=== PATIENT | male | born 1940 | race Caucasian/White ===

== ENCOUNTER 2017-02-15 13:11 | Inpatient (IN) | payer MEDICARE ==
[2017-02-15] MEDS ORDERED: Rocuronium Bromide 50 MG/5 ML VIAL ONE (13:21)
[2017-02-15] MEDS ORDERED: Fentanyl 100 MCG/2 ML VIAL ONE (13:27)
[2017-02-15] MEDS ORDERED: Midazolam HCl 2 mg/2 ml Vial ONE (13:27)
[2017-02-15 13:42] LABS: #Eosinphils 0.1 thou/uL (0.0-0.7); #Lymphocytes 0.9 thou/uL (1.20-3.40); #Monocytes 0.6 thou/uL (0.11-0.59); #Neutrophils 3.6 thou/uL (1.40-6.50); %Basophils 0.3 % (0.0-1.0); %Eosinophils 1.8 % (0.0-10.0); %Lymphocytes 17.3 % (21.0-51.0); %Monocytes 11.7 % (0.0-10.0); Hematocrit 44.8 % (42.0-52.0); Mean Platelet Volume 6.2 fL (7.4-10.4); Red Blood Cell (RBC) Count 4.78 mill/uL (4.70-6.10); White Blood Cell (WBC) Count 5.3 thou/uL (4.8-10.8)
[2017-02-15] MEDS ORDERED: Fentanyl 20 MCG/ML 250 ML ONE (13:47)
[2017-02-15 13:56] LABS: Acetaminophen Less than 6.0 mcg/mL (10.0-30.0); Salicylate Less than 8.0 mg/dL (15.0-30.0)
[2017-02-15 13:57] LABS: ALT (SGPT) Less than 7 U/L (8-55); AST (SGOT) 21 U/L (5-34); Alkaline Phosphatase 62 U/L (40-150); Anion Gap 15 mmol/L (10-20); BUN (Urea Nitrogen) 15 mg/dL (8.4-25.7); Bilirubin, Total 0.7 mg/dL (0.2-1.2); CK (CPK) 172 U/L (30-200); Calc. Creatinine Clearance 0 mL/min (70-130); Calcium 9.5 mg/dL (7.8-10.44); Carbon Dioxide 25 mmol/L (23-31); Chloride 104 mmol/L (98-107); Estimated GFR-MDRD 77; Protein, Total 7.1 g/dL (5.8-8.1)
[2017-02-15 14:01] LABS: Bilirubin Negative (Negative); Blood, Urine Negative (Negative); Glucose, Urine (Dipstick) Negative (Negative); Ketone, Urine Negative (Negative); Nitrite Negative (Negative); Protein, Urine (Dipstick) Negative (Neg-Trace); Urobilinogen 0.2 mg/dL (0.2-1.0)
[2017-02-15 14:17] LABS: Amphetamine Not Detected (NotDetected); Methadone Not Detected (NotDetected); Methamphetamine Not Detected (NotDetected)
--- NOTE | 2017-02-15 14:19 | CT ---
CT CERVICAL SPINE WITHOUT CONTRAST: Comparison: None. History: Altered mental status. Patient was found more than hour prior to arrival with altered menta l status. Technique: Multiple contiguous axial images were obtained in a CT of the cervical spine without cont rast. Sagittal and coronal reformats were performed. FINDINGS: An endotracheal tube is partially visualized. The C5 and C6 vertebral bodies are fused. The vertebra l bodies demonstrate normal height without acute fracture or subluxation. There are moderate degener ative changes in the lower cervical spine. No prevertebral soft tissue swelling is seen. The posterior facets are well aligned. Normal alignment of the skull base with the cervical spine is seen. There are opacities seen in the right upper lobe which could represent a pulmonary infiltrate. IMPRESSION: 1. No evidence of acute osseous abnormality of the cervical spine. 2. Possible right upper lobe infiltrate. POS: [facility]
--- NOTE | 2017-02-15 14:32 | RAD ---
SINGLE VIEW OF THE CHEST: Comparison: None. History: Altered mental status. FINDINGS: Single view of the chest shows an enlarged cardiomediastinal silhouette. An endotracheal tube is see n with its tip between the clavicles. There is no evidence of consolidation, mass or pleural effusio n. IMPRESSION: 1. No evidence of acute cardiopulmonary disease. 2. Appropriate position of endotracheal tube. POS: [facility]
--- NOTE | 2017-02-15 14:34 | CT ---
CT BRAIN WITHOUT CONTRAST: History: Altered mental status for more than one hour prior to arrival. GSS of 8. Technique: Multiple contiguous axial images were obtained in a CT of the brain without contrast. FINDINGS: There are scattered hypodensities in the subcortical and periventricular white matter, likely second jhonathan to small vessel ischemic disease. No large confluent infarction is seen. There is no evidence of hydrocephalus, intracranial hemorrhage or extraaxial fluid collections. The calvarium and overlying soft tissues are unremarkable. The visualized paranasal sinuses and mast oid air cells are well aerated. IMPRESSION: Small vessel ischemic disease without acute intracranial abnormality. POS: [facility]
[2017-02-15 14:48] LABS: Mechanical Tidal Volume 490 ml; Mode SIMV; Modified Allen's Test POSITIVE; Oxyhemoglobin 97.6 % (94.0-97.0); Pressure Support 10 cmH2O; Sodium 140 mmol/L (135-148); Vent YES
[2017-02-15] MEDS ORDERED: cefTRIAXone\\ROCEPHIN 2 GM VIAL ONE ×2 (16:27→16:41)
[2017-02-15] MEDS ORDERED: Azithromycin 500 MG VIAL ONE (16:27)
[2017-02-15] MEDS ORDERED: CCU Electrolyte Replacement 1 EACH IVPB ONE (17:05)
[2017-02-15] MEDS ORDERED: Diabetic Tussin 200 MG/10 ML UDCUP PER TUBE PRN (17:05)
[2017-02-15] MEDS ORDERED: Mag-Al 1200 mg/1200 mg/30 ML UDCUP PER TUBE PRN (17:05)
[2017-02-15] MEDS ORDERED: Senokot 8.6 MG TAB PER TUBE PRN (17:05)
[2017-02-15] MEDS ORDERED: Labetalol HCl 100 MG/20 ML VIAL SLOW IVP PRN (17:05)
[2017-02-15] MEDS ORDERED: Eucerin (Mineral Oil/Petrolatum,White) 30 gm Jar TOP PRN (17:05)
[2017-02-15] MEDS ORDERED: Ondansetron HCl/PF 4 MG/2 ML Vial IVP PRN (17:05)
[2017-02-15] MEDS ORDERED: Acetaminophen 325 MG TAB PER TUBE PRN (17:05)
[2017-02-15] MEDS ORDERED: Milk Of Magnesia 30 ML UDCUP PER TUBE PRN (17:05)
[2017-02-15] MEDS ORDERED: Artificial Tears 18 DROP/0.9 ML EA EYE PRN (17:05)
[2017-02-15] MEDS ORDERED: Loperamide HCl 2 MG CAP PER TUBE PRN (17:05)
[2017-02-15] MEDS ORDERED: Sedation Protocol FS ONE (17:05)
[2017-02-15] MEDS ORDERED: Ondansetron ODT 4 MG TAB PER TUBE PRN (17:05)
--- NOTE | 2017-02-15 17:05 | HP ---
PRIMARY CARE PHYSICIAN: City call admission. REASON FOR ADMISSION: Acute respiratory failure and acute encephalopathy. HISTORY OF PRESENT ILLNESS: A 76-year-old male who is currently intubated, so we are not able to ge t any history from him. The patient's family member present who provided history. This patient renetta t to other emergency room recently in [place] and the patient was having some respiratory symptoms and that is why the patient was given levofloxacin and he was discharged home. The patient was hav ing difficulty sleeping and that is why the patient was given clonazepam last night. This morning, the patient was completely incoherent and was mumbling. Subsequently, the patient started walking t o the pond up to waist level and somebody saved his life. He did not have any drowning but villanathanael leonid pulled out of the pond, paramedics brought him to the emergency room. The patient was intubated i n the emergency room. The patient also got central line and at this point the patient is being admi tted to ICU. Dr. Loera already saw this patient. REVIEW OF SYSTEMS: All review of systems tried to reviewed with the patient, but unable to review a t this point because the patient is intubated and sedated. PAST MEDICAL HISTORY: History of prostate cancer diagnosed in 2010, Parkinson's disease, history of pneumonia diagnosed in the emergency room yesterday, hypothyroidism, benign enlargement of prostate , Alzheimer's dementia, dyslipidemia, anxiety and depression, and hypertension. PAST SURGICAL HISTORY: Cardiac catheterization with stent placement. PAST PSYCHIATRIC HISTORY: Anxiety, depression, and dementia. SOCIAL HISTORY: The patient lives at home with the family. No history of tobacco, alcohol or illic it drug abuse. FAMILY HISTORY: No strong family history of premature coronary artery disease, stroke or cancer. ALLERGIES: No known drug allergies. CURRENT HOME MEDICATIONS: Synthroid 25 mcg p.o. daily, Detrol 2 mg twice daily, Proscar 5 mg p.o. d aily, oxybutynin 15 mg p.o. daily, donepezil 10 mg p.o. daily, ropinirole 1 mg p.o. daily, Lipitor 4 0 mg p.o. at bedtime, metoprolol 25 mg p.o. daily, levodopa 25/100 one tablet q.i.d., ramipril 10 mg p.o. daily, clonazepam 1 mg p.o. at bedtime, vitamin D3 with calcium 1 tablet daily, multivitamin 1 tablet p.o. daily, and selegiline 5 mg twice daily. EMERGENCY ROOM COURSE: In the emergency room, the patient is given Rocephin, azithromycin, IV fluid , fentanyl, Versed, etomidate, and Zemuron. PHYSICAL EXAMINATION: VITAL SIGNS: Currently, blood pressure 179/91, pulse 58, respiratory rate 17 on ventilator, saturat ion 98% on ventilator, weight 95.3 kilograms, and temperature 96.4 rectally. GENERAL: The patient is currently intubated and sedated, no obvious acute distress. HEENT: Head: Normocephalic, atraumatic. Eyes: Pupils round, reactive to light. Extraocular musc les are intact. ENT: Endotracheal tube in place. No pharyngeal erythema. NECK: Supple, no JVD, no thyromegaly, no carotid bruit. Range of motion is normal. LUNGS: Clear to auscultation without any obvious rhonchi or rales anteriorly. CARDIAC: S1, S2 regular without any significant murmur. ABDOMEN: Soft, bowel sounds present, nondistended. No organomegaly, no mass, no suprapubic tendern ess. BACK: Unremarkable. EXTREMITIES: Upper extremity passive movements of all joints are normal. Lower extremity passive m ovements of all joints are normal. No edema, good peripheral pulsation. SKIN: No skin rash. HEMATOLOGICAL: No lymphadenopathy. PSYCHIATRIC: Unable to assess at this point. NEUROLOGIC: Unable to assess at this point because the patient is intubated. SIGNIFICANT LABS: EKG based on my review, first-degree AV block, LVH, left anterior fascicular bloc k, repolarization changes. CT brain showing small vessel ischemic changes, but no acute process. C T cervical spine showing opacity of the right upper lobe, possibly pulmonary infiltrate. Chest x-ra y based on my review, no acute cardiopulmonary process. SIGNIFICANT LABORATORY DATA: 1. WBC 5.3, hemoglobin 14.7, platelet 182. PTT 29.3. ABG: pH 7.44, CO2 of 36.9, O2 of 195.3, sat uration 99.4, bicarbonate 24.3. 2. BMP: Sodium 140, potassium 3.6, chloride 104, carbon dioxide 25, anion gap 15, BUN 15, creatini ne 0.95, glucose 96, calcium 9.5. 2. LFT: AST 21, ALT less than 7, alkaline phosphatase 62, albumin 4.1, lipase 57. Urinalysis norm al. Urine drug screen negative. Serum drug screen negative. ASSESSMENT AND PLAN: 1. Acute respiratory failure. The patient is currently intubated. Dr. Loera, crackling press operator, saw this patient, he e will manage ventilator. Reason for respiratory failure because of overdose with medication/underlying pneumonia/encephalopathy. 2. Right upper lobe pneumonia. We will continue with Rocephin 1 gram q.24 h. and Levaquin 500 mg I V daily. 3. Encephalopathy. The patient was completely incoherent. He was walking in pond and he was confu sed, unclear whether it was related with clonazepam overdose versus suicidal attempt. This patient also has underlying Alzheimer dementia and possibly behavioral disturbances also likely. 4. Parkinson's disease with Parkinson's dementia. 5. Alzheimer dementia. 6. Hypothyroidism. 7. Benign enlargement of prostate. 8. Dyslipidemia. 9. Hypertension. 10. Anxiety and depression. 11. Deep venous thrombosis prophylaxis. Lovenox 40 mg subcu daily. 12. Gastrointestinal prophylaxis. Pepcid 20 mg IV b.i.d. 13. Code status: The patient is FULL CODE. The patient's is surrogate decision maker. Disposition plan based on clinical course. The patient's home medication list above for all problem s will be started appropriately when patient's p.o. intake resumed.
[2017-02-15] MEDS ORDERED: DISCONTINUE PREVIOUS NARCOTIC PAIN MEDICATIONS AND BENZODIAZEPINES FS SCH (17:14)
[2017-02-15] MEDS ORDERED: Propofol 1,000 MG/100 ML VIAL IV PRN (17:14)
[2017-02-15] MEDS ORDERED: Fentanyl 20 MCG/ML 250 ML IVPB SCH (17:14)
[2017-02-15] MEDS ORDERED: Lorazepam 2 MG/ML VIAL SLOW IVP PRN (17:14)
[2017-02-15] MEDS ORDERED: Potassium Chloride 20 MEQ TAB PO PRN (17:15)
[2017-02-15] MEDS ORDERED: Potassium Chloride 40 MEQ in Sodium Chloride 0.9% 250 ML 250 ML IVPB PRN (17:15)
[2017-02-15] MEDS ORDERED: CCU ELECTROLYTE REPLACEMENT PROTOCOL FS PRN (17:15)
[2017-02-15] MEDS ORDERED: Magnesium 2 GM/NS 0.9% 100 ML 2 GM in Premix Bag 1 BAG IVPB PRN (17:15)
[2017-02-15] MEDS ORDERED: Magnesium Oxide 400 MG TAB PO PRN ×2 (17:15)
[2017-02-15] MEDS ORDERED: Potassium Phosphate 9 MMOL in Sodium Chloride 0.9% 100 ML IVPB PRN (17:15)
[2017-02-15] MEDS ORDERED: Potassium Phosphate 15 MMOL in Sodium Chloride 0.9% 250 ML 250 ML IV PRN (17:15)
[2017-02-15] MEDS ORDERED: Potassium Phosphate 12 MMOL in Sodium Chloride 0.9% 250 ML 250 ML IV PRN (17:15)
[2017-02-15] MEDS: Potassium Chloride 40 MEQ in Premix Bag 1 BAG IVPB PRN (18:42)
[2017-02-15] MEDS: Dextrose 5 % And 0.9 % NaCl 1,000 ML IV SCH (18:42)
[2017-02-15] MEDS ORDERED: Famotidine/PF 20 mg/2ml Vial SLOW IVP SCH (21:00)
--- NOTE | 2017-02-15 21:01 | RAD ---
RADIOGRAPH CHEST 1 VIEW: Date: 02/15/17 Time: 3:47 p.m. HISTORY: 76-year-old male in respiratory failure. COMPARISON: 02/15/17, 1:37 p.m. FINDINGS: This is a supine image, which would be insensitive for the detection of pneumothorax. Endotracheal t ube is 6 cm superior to the sana. A right internal jugular central venous catheter has been placed , with distal tip overlying the upper portion of the SVC. An NG tube has been placed, with distal ti p coursing inferior to the diaphragm into the left upper quadrant, with distal tip outside of the fi eld of view. Again noted are the mild patchy irregular densities at the base of the left lower lobe which are nonspecific. They could represent subsegmental atelectasis or scar. Acute infiltrate is le ss likely but not excluded. No pulmonary edema. No interval change in the appearance of the lungs. IMPRESSION: 1. Interval placement of right internal jugular central venous catheter. 2. Interval placement of nasogastric tube. 3. Endotracheal tube remains in place. 4. Nonspecific mild pulmonary densities at the left lung base are unchanged. JN [] POS: [facility]
[2017-02-16 06:02] VITALS: BMI 23.8
[2017-02-16 06:21] LABS: Anion Gap 9 mmol/L (10-20); BUN (Urea Nitrogen) 13 mg/dL (8.4-25.7); Calc. Creatinine Clearance 86 mL/min (70-130); Calcium 8.5 mg/dL (7.8-10.44); Carbon Dioxide 27 mmol/L (23-31); Chloride 108 mmol/L (98-107); Estimated GFR-MDRD Greater than 90
[2017-02-16 06:24] LABS: Band 1 % (5-11); Hematocrit 34.5 % (42.0-52.0); Mean Platelet Volume 6.3 fL (7.4-10.4); Neutrophil 66 % (42-75); Red Blood Cell (RBC) Count 3.66 mill/uL (4.70-6.10); White Blood Cell (WBC) Count 5.7 thou/uL (4.8-10.8)
[2017-02-16] MEDS: Potassium Chloride 40 MEQ in Premix Bag 1 BAG IVPB PRN (06:43)
[2017-02-16] MEDS ORDERED: Dextrose 5 % And 0.9 % NaCl 1,000 ML IV SCH (06:58)
--- NOTE | 2017-02-16 08:03 | CON ---
DATE OF CONSULTATION: 02/16/2017 SERVICE: Pulmonary Medicine HISTORY OF PRESENT ILLNESS: The patient is a 76-year-old white male with past medical history signi ficant for Parkinson's disease. He was feeling a little off and slightly short-winded with increasi ng cough. He presented to the emergency department. A chest x-ray demonstrated a left upper lobe i nfiltrate. He was started on levofloxacin in the outpatient setting. At that time, he had complain ts of insomnia. As such, he was initiated on clonazepam. He took his first dose and the next morni ng he was difficult to wake up. When his finally got him into a chair, he was doing nothing, b ut mumbling. She could not make any sense of any of his words. She thought that maybe it was becau se of some blood sugar or blood pressure issues, so she went to get his morning medications. When s he came back, he was actually gone and out of the house. He had walked down to the [place] under his o wn strength and was actually wading into the water. One of the yard hands identified him and realiz ed that this was not a normal behavior. He jumped into the pond and pulled the patient out. He was subsequently brought to the emergency department. At that point, his [place] coma scale was adequa te, but because of fear for not being able to really control his airway, he was electively intubated . He cannot provide any additional elements of the history at this time. There were no overnight e vents. PAST MEDICAL HISTORY: 1. Parkinson's disease. 2. Hypothyroidism. 3. Benign prostate hyperplasia. 4. Dementia, fairly advanced. 5. Dyslipidemia. 6. Anxiety disorder. 7. Major depressive disorder. 8. Hypertension. PAST SURGICAL HISTORY: Cardiac catheterization with PCI. SOCIAL HISTORY: The patient lives at home with his . He has no history of alcohol, tobacco or illicit drug use presently. FAMILY HISTORY: Noncontributory. ALLERGIES: No known drug allergies. MEDICATIONS: A list of his home medications as well as inpatient medications were reviewed. Multip le updates were made to this hospital stay. On discharge, clonazepam should be discontinued. REVIEW OF SYSTEMS: This cannot be obtained as the patient is currently intubated and sedated. PHYSICAL EXAMINATION: VITAL SIGNS: Afebrile, pulse 88, blood pressure 96/47, respirations 15, saturation 95% on 31% FiO2 and a PEEP of 5. GENERAL: The patient is intubated and sedated. HEENT: Normocephalic, atraumatic. Sclerae are white, conjunctivae pink. Oral and nasal mucosa is moist without lesions. LUNGS: Decent air entry. There is no prolonged expiratory phase, wheezing, rhonchi or crackles. HEART: Normal rate, regular. ABDOMEN: Soft, nontender, nondistended, bowel sounds positive. MUSCULOSKELETAL: No cyanosis or clubbing. There is trace to 1+ pitting in the bilateral lower extr emities. GENITOURINARY: Henson catheter in place. NEUROLOGIC: Grossly nonfocal. LABORATORIES: WBC 5.7, hemoglobin 11.6, platelets 175,000. PH 7.44, pCO2 37, pO2 195. Potassium 3 .3. Basic metabolic profile is otherwise unremarkable. Ammonia is normal. Liver function studies and TSH are normal. Lipase is unremarkable. Urinalysis is unremarkable. Urine drug screen is unre markable. IMAGIN. Chest x-ray demonstrates endotracheal tube is in excellent position. There is a right-sided int ernal jugular central venous catheter in place. A small amount atelectasis is likely present in the left lower lobe. 2. CT of the C-spine demonstrates no acute osseous deformation. 3. CT of the brain demonstrates no acute intracranial abnormality. There is some small vessel dise ase, which is chronic in nature. ASSESSMENT: 1. Metabolic encephalopathy. 2. Acute respiratory failure secondary to #1. 3. Community-acquired pneumonia, possible. 4. Parkinson's disease with advanced dementia. PLAN: We will replace the patient's potassium. Spontaneous breathing trial will be performed after a good sedation holiday. If he is appropriate, extubation will be considered Pulmonary Critical C are will continue to follow while the patient remains in house. Critical care time: 30 minutes.
--- NOTE | 2017-02-16 08:37 | RAD ---
SINGLE VIEW OF CHEST: Date: 02/16/17 COMPARISON: 02/15/17. HISTORY: Ventilated patient with respiratory failure. FINDINGS: Single view of the chest shows normal sized cardiomediastinal silhouette. Lines and tubes are unchan ged in position. Atelectasis versus an infiltrate is seen in the left lower lobe. IMPRESSION: Stable exam. POS: [facility]
[2017-02-16] MEDS: Enoxaparin Sodium 40 MG/0.4 ML SYRINGE SC SCH (09:32)
[2017-02-16] MEDS ORDERED: Acetaminophen 325 MG TAB PO PRN (09:56)
[2017-02-16] MEDS ORDERED: Mag-Al 1200 mg/1200 mg/30 ML UDCUP PO PRN (09:57)
[2017-02-16] MEDS ORDERED: Diabetic Tussin 200 MG/10 ML UDCUP PO PRN (09:57)
[2017-02-16] MEDS ORDERED: Loperamide HCl 2 MG CAP PO PRN (09:58)
[2017-02-16] MEDS ORDERED: Ondansetron ODT 4 MG TAB PO PRN (09:58)
[2017-02-16] MEDS ORDERED: Senokot 8.6 MG TAB PO PRN (09:59)
--- NOTE | 2017-02-16 10:19 | PDOC.PN ---
- Subjective Encounter Start Date: 02/16/17 Encounter Start Time: 09:00 -: old records requested/rev pt was extubated early this morning, family bedside Patient seen and examined. No new complaints. No overnight events - Objective Resuscitation Status: Resuscitation Status FULL:Full Resuscitation MAR Reviewed: Yes Vital Signs & Weight: Vital Signs (12 hours) Temp Pulse Resp BP Pulse Ox 02/16/17 08:00 97.9 F 02/16/17 07:19 100 19 94 L 02/16/17 07:00 97.9 F 02/16/17 06:38 88 96/47 L 02/16/17 06:00 15 02/16/17 04:00 98.5 F 15 02/16/17 02:36 73 02/16/17 02:00 02/16/17 00:00 98.2 F 15 02/15/17 22:21 58 L Weight Weight 180 lb 5.41 oz Most Recent Monitor Data Heart Rate from ECG 89 NIBP 126/69 NIBP BP-Mean 86 Respiration from ECG 14 SpO2 92 I&O: 02/15/17 02/16/17 02/17/17 06:59 06:59 06:59 Intake Total 1365.9 0 Output Total 925 70 Balance 440.9 -70 Result Diagrams: 02/16/17 05:20 02/16/17 05:20 Radiology Reviewed by me: Yes (chest xray) EKG Reviewed by me: Yes Phys Exam - Physical Examination Constitutional: NAD HEENT: PERRLA, moist MMs, sclera anicteric Neck: no JVD, supple Respiratory: no wheezing, no rales, no rhonchi Cardiovascular: RRR, no significant murmur, no rub Gastrointestinal: soft, non-tender, no distention, positive bowel sounds Musculoskeletal: no edema, pulses present Neurological: moves all 4 limbs Lymphatic: no nodes Psychiatric: normal affect Skin: no rash, normal turgor Dx/Plan (1) Acute respiratory failure Code(s): J96.00 - ACUTE RESPIRATORY FAILURE, UNSP W HYPOXIA OR HYPERCAPNIA Status: Resolved Qualifiers: Respiratory failure complication: hypoxia Qualified Code(s): J96.01 - Acute respiratory failure with hypoxia (2) Community acquired bacterial pneumonia Code(s): J15.9 - UNSPECIFIED BACTERIAL PNEUMONIA Status: Acute (3) Encephalopathy acute Code(s): G93.40 - ENCEPHALOPATHY, UNSPECIFIED Status: Acute (4) Hypokalemia Code(s): E87.6 - HYPOKALEMIA Status: Acute (5) Alzheimer's dementia with behavioral disturbance Code(s): G30.8 - OTHER ALZHEIMER'S DISEASE; F02.81 - DEMENTIA IN OTH DISEASES CLASSD ELSWHR W BEHAVIORAL DISTURB Status: Chronic (6) Anemia, normocytic normochromic Code(s): D64.9 - ANEMIA, UNSPECIFIED Status: Chronic (7) Anxiety and depression Code(s): F41.8 - OTHER SPECIFIED ANXIETY DISORDERS Status: Chronic (8) Dyslipidemia Code(s): E78.5 - HYPERLIPIDEMIA, UNSPECIFIED Status: Chronic (9) Hypertension Code(s): I10 - ESSENTIAL (PRIMARY) HYPERTENSION Status: Chronic (10) Hypothyroidism Code(s): E03.9 - HYPOTHYROIDISM, UNSPECIFIED Status: Chronic (11) Parkinson disease Code(s): G20 - PARKINSON'S DISEASE Status: Chronic - Plan cont current plan of care, plan discussed w/ family, stoner catheter, continue antibiotics, PT/OT, social services analyst * pt is extubated today, will observe few hours in CCU and if stable then will consider transfer to medical floor later today * I have reconciled his home medication * discussed and updated plan with family bedside * start PT * medication reviewed as below * symptomatic treatment. Review of Systems - Review of Systems Other: not reliable due to dementia and still lethargic - Medications/Allergies Allergies/Adverse Reactions: Allergies Allergy/AdvReac Type Severity Reaction Status Date / Time No Known Allergies Allergy Unverified 02/15/17 17:14 Medications: Current Medications Acetaminophen (Tylenol) 650 mg PO Q4H PRN PRN Reason: Headache/Fever or Pain Al Hydroxide/Mg Hydroxide (Maalox) 30 ml PO Q6H PRN PRN Reason: Heartburn or Indigestion Albuterol/Ipratropium (Duoneb) 3 ml NEB [id number] PRN PRN Reason: SOB &/or Wheezing Artificial Tears (Tears Naturale) 0 drop EA EYE PRN PRN PRN Reason: Dry Eyes Atorvastatin Calcium (Lipitor) 40 mg PO DAILY DESHAUN Cholecalciferol (Vitamin D3) 2,000 units PO DAILY DESHAUN Donepezil HCl (Aricept) 10 mg PO HS DESHAUN Enoxaparin Sodium (Lovenox) 40 mg SC 0900 [facility] Last Admin: 02/16/17 09:32 Dose: 40 mg Finasteride (Proscar) 5 mg PO DAILY [facility] Guaifenesin (Robitussin Sf) 200 mg PO Q4H PRN PRN Reason: Cough Hydralazine HCl (Apresoline) 10 mg SLOW IVP Q4H PRN PRN Reason: Systolic BP > 180 Levofloxacin 500 mg/ Device 100 mls @ 100 mls/hr IVPB Q24HR [facility] Last Admin: 02/15/17 18:47 Dose: 100 mls Dextrose/Sodium Chloride (D5 0.9% Ns) 1,000 mls @ 0 mls/hr IV .Q0M [facility] PRN Reason: KVO Last Admin: 02/16/17 09:37 Dose: 1,000 mls Labetalol HCl (Normodyne) 20 mg SLOW IVP Q4H PRN PRN Reason: Systolic BP > 180 Loperamide HCl (Imodium) 2 mg PO PRN PRN PRN Reason: Diarrhea/Loose Stools Mineral Oil/White Petrolatum (Eucerin Cream) 0 gm TOP BIDPRN PRN PRN Reason: Dry Skin Multivitamins (Theragran) 1 tab PO DAILY [facility] Ondansetron HCl (Zofran) 4 mg IVP Q6H PRN PRN Reason: Nausea/Vomiting Ondansetron HCl (Zofran Odt) 4 mg PO Q6H PRN PRN Reason: Nausea/Vomiting Oxybutynin Chloride (Ditropan Xl) 15 mg PO DAILY [facility] Ramipril (Altace) 10 mg PO DAILY [facility] Ropinirole HCl (Requip) 1 mg PO DAILY [facility] Senna (Senokot) 2 tab PO HSPRN PRN PRN Reason: Constipation Sodium Chloride (Flush - Normal Saline) 10 ml IVF Q12HR [facility] Last Admin: 02/16/17 09:33 Dose: 10 ml Sodium Chloride (Flush - Normal Saline) 10 ml IVF PRN PRN PRN Reason: Saline Flush Trospium (Trospium Chloride) 20 mg PO BID [facility]
[2017-02-16] MEDS ORDERED: cefTRIAXone\\ROCEPHIN 1 GM in Sodium Chloride 0.9% 100 ML IVPB SCH (16:00)
[2017-02-16] MEDS ORDERED: rOPINIRole HCl 0.25 MG TAB PO SCH (18:15)
[2017-02-16] MEDS ORDERED: Tolterodine Tartrate LA 2 MG CAP PO SCH (21:00)
[2017-02-16] MEDS ORDERED: Atorvastatin Calcium 40 MG TAB PO SCH (21:15)
[2017-02-16] MEDS ORDERED: Carbidopa/Levodopa 25-100 mg Tablet PO SCH (21:30)
[2017-02-16] MEDS ORDERED: Ramipril 5 MG CAP PO SCH (21:30)
[2017-02-16] MEDS ORDERED: rOPINIRole HCl 1 MG TAB PO SCH (21:30)
[2017-02-16] MEDS: Donepezil HCl 10 MG TAB PO SCH (21:34)
[2017-02-16] MEDS: TROSPIUM 20 MG TABLET PO SCH (21:34)
[2017-02-17] MEDS: Dextrose 5 % And 0.9 % NaCl 1,000 ML IV SCH (04:26)
[2017-02-17] MEDS: Carbidopa/Levodopa 25-100 mg Tablet PO SCH ×2 (08:00→19:04)
[2017-02-17] MEDS: TROSPIUM 20 MG TABLET PO SCH ×2 (08:00→20:31)
[2017-02-17] MEDS: Metoprolol Tartrate 50 MG TAB PO SCH (08:01)
[2017-02-17] MEDS: Enoxaparin Sodium 40 MG/0.4 ML SYRINGE SC SCH (08:01)
[2017-02-17] MEDS: Finasteride 5 MG TAB PO SCH (08:01)
[2017-02-17] MEDS: Multivit, Therapeutic 1 TAB PO SCH (08:01)
[2017-02-17] MEDS ORDERED: rOPINIRole HCl 1 MG TAB PO SCH ×2 (09:00→21:00)
[2017-02-17] MEDS ORDERED: CHOLECALCIFEROL 2000 MG PO SCH (09:00)
[2017-02-17] MEDS ORDERED: OXYBUTYNIN CHLORIDE 15 MG PO SCH (09:00)
[2017-02-17] MEDS ORDERED: Atorvastatin Calcium 40 MG TAB PO SCH (09:00)
[2017-02-17] MEDS ORDERED: Non-Formulary Item 1 EACH (Ramipril [Ramipril] 10 MG) PO SCH (09:00)
[2017-02-17] MEDS ORDERED: Non-Formulary Item 1 EACH (Multivitamin [Multivitamins] 1 CAP) PO SCH (09:00)
[2017-02-17] MEDS ORDERED: Ramipril 5 MG CAP PO SCH (09:00)
--- NOTE | 2017-02-17 12:44 | PDOC.PN ---
- Subjective Encounter Start Date: 02/17/17 Encounter Start Time: 12:42 Mr. Hernadez does not have any complaints. He denies trouble breathing, chest pain or dyspnea. - Objective Resuscitation Status: Resuscitation Status FULL:Full Resuscitation MAR Reviewed: Yes Vital Signs & Weight: Vital Signs (12 hours) Temp Pulse Resp BP Pulse Ox 02/17/17 11:29 97.5 F L 77 20 118/72 96 02/17/17 08:00 97.5 F L 83 16 02/17/17 07:40 97.5 F L 83 16 149/82 H 96 Weight Weight 172 lb 3.2 oz Most Recent Monitor Data Heart Rate from ECG 93 NIBP 166/75 NIBP BP-Mean 95 Respiration from ECG 15 SpO2 95 I&O: 02/16/17 02/17/17 02/18/17 06:59 06:59 06:59 Intake Total 1365.9 908 Output Total 925 765 Balance 440.9 143 Result Diagrams: 02/16/17 05:20 02/16/17 05:20 Phys Exam - Physical Examination HEENT: PERRLA Respiratory: no wheezing, no rales, no rhonchi, clear to auscultation bilateral Cardiovascular: RRR, no significant murmur Gastrointestinal: soft, non-tender, positive bowel sounds Musculoskeletal: no edema Dx/Plan (1) Community acquired bacterial pneumonia Code(s): J15.9 - UNSPECIFIED BACTERIAL PNEUMONIA Status: Acute (2) Encephalopathy acute Code(s): G93.40 - ENCEPHALOPATHY, UNSPECIFIED Status: Acute (3) Dyslipidemia Code(s): E78.5 - HYPERLIPIDEMIA, UNSPECIFIED Status: Chronic (4) Hypertension Code(s): I10 - ESSENTIAL (PRIMARY) HYPERTENSION Status: Chronic (5) Parkinson disease Code(s): G20 - PARKINSON'S DISEASE Status: Chronic - Plan * Altered Mental Status- this is likely from Clonazepam * Pneumonia- symptomatically improved- will continue Levaquin. * HTN- blood pressure is stable * Will monitor overnight, and if he continues to do well than suspect he can be discharged home tomorrow
--- NOTE | 2017-02-17 18:26 | PRG ---
DATE OF SERVICE: 02/17/2017 SERVICE: Pulmonary Medicine. INTERVAL HISTORY: The patient is doing outstanding from a respiratory standpoint. He denies any si gnificant shortness of breath. He is very weak when he gets around. His is suggesting that un elan no circumstances would she be able to care for him in this current setting. PHYSICAL EXAMINATION: VITAL SIGNS: Afebrile, pulse 77, blood pressure 118/72, respirations 20, saturation 96% on room air . GENERAL: The patient is awake and alert, in no apparent distress. LUNGS: Excellent air entry. There are some crackles present, particularly at the left base. HEART: Normal rate, regular. ABDOMEN: Soft, nontender, nondistended, bowel sounds positive. MUSCULOSKELETAL: No cyanosis or clubbing. No pitting in the bilateral lower extremities. NEUROLOGIC: Grossly nonfocal. LABORATORY DATA: WBC 5.7, hemoglobin 11.6, platelets 175,000. Potassium 3.3. Basic metabolic prof ile is otherwise unremarkable. Blood cultures x2 are negative to date. IMAGING: Endotracheal tube is in good position. There is a left pleural parenchymal opacification and some atelectasis on that side. Otherwise, there is no acute cardiopulmonary abnormality. ASSESSMENT: 1. Acute hypoxic respiratory failure, resolved. 2. Metabolic encephalopathy. 3. Community-acquired pneumonia, suspected. 4. Parkinson's disease with advanced dementia. 5. Deconditioning/debility. PLAN: From a purely respiratory perspective, the patient is stable for transition out of the hospit al. I am going to put a case management consultation in because the is suggesting that under n o circumstances would she be able to provide for him in her current state at home. It would be pote ntially dangerous for her and the patient. As such, I think he can be best served by going to a [facility] nursing facility for 2-3 weeks to regain strength and pursue aggressive physical therapy. He h as no further requirements for Pulmonary Critical Care opinion, so I will sign off. Please call irais mcgrath additional questions or concerns.
[2017-02-17] MEDS: Ramipril 5 MG CAP PO SCH (20:27)
[2017-02-17] MEDS: Donepezil HCl 10 MG TAB PO SCH (20:31)
[2017-02-17] MEDS: Atorvastatin Calcium 40 MG TAB PO SCH (20:32)
[2017-02-18] MEDS: Carbidopa/Levodopa 25-100 mg Tablet PO SCH ×4 (06:16→20:08)
[2017-02-18] MEDS: Multivit, Therapeutic 1 TAB PO SCH (09:08)
[2017-02-18] MEDS: Metoprolol Tartrate 50 MG TAB PO SCH (09:08)
[2017-02-18] MEDS: Finasteride 5 MG TAB PO SCH (09:08)
[2017-02-18] MEDS: Enoxaparin Sodium 40 MG/0.4 ML SYRINGE SC SCH (09:08)
[2017-02-18] MEDS: TROSPIUM 20 MG TABLET PO SCH ×2 (09:08→20:12)
--- NOTE | 2017-02-18 12:32 | PDOC.PN ---
- Subjective Encounter Start Date: 02/18/17 Encounter Start Time: 09:35 -: old records requested/rev Patient seen and examined. No new complaints. No overnight events - Objective Resuscitation Status: Resuscitation Status FULL:Full Resuscitation MAR Reviewed: Yes Vital Signs & Weight: Vital Signs (12 hours) Temp Pulse Resp BP BP Pulse Ox 02/18/17 08:00 98.0 F 93 18 158/95 H 96 02/18/17 05:30 90 18 167/95 H 94 L 02/18/17 04:00 97.5 F L 90 16 178/101 H 94 L Weight Weight 190 lb 6 oz Most Recent Monitor Data Heart Rate from ECG 93 NIBP 166/75 NIBP BP-Mean 95 Respiration from ECG 15 SpO2 95 I&O: 02/17/17 02/18/17 02/19/17 06:59 06:59 06:59 Intake Total 908 490 Output Total 765 500 Balance 143 -10 Result Diagrams: 02/16/17 05:20 02/16/17 05:20 Additional Labs: Accuchecks 02/16/17 20:03 POC Glucose 135 H Phys Exam - Physical Examination Constitutional: NAD HEENT: PERRLA, moist MMs, sclera anicteric Neck: no JVD, supple Respiratory: no wheezing, no rales, no rhonchi Cardiovascular: RRR, no significant murmur, no rub Gastrointestinal: soft, non-tender, no distention, positive bowel sounds Musculoskeletal: no edema, pulses present Neurological: non-focal, normal sensation Lymphatic: no nodes Psychiatric: normal affect Skin: no rash, normal turgor Dx/Plan (1) Acute respiratory failure Code(s): J96.00 - ACUTE RESPIRATORY FAILURE, UNSP W HYPOXIA OR HYPERCAPNIA Status: Resolved Qualifiers: Respiratory failure complication: hypoxia Qualified Code(s): J96.01 - Acute respiratory failure with hypoxia (2) Community acquired bacterial pneumonia Code(s): J15.9 - UNSPECIFIED BACTERIAL PNEUMONIA Status: Acute (3) Encephalopathy acute Code(s): G93.40 - ENCEPHALOPATHY, UNSPECIFIED Status: Acute (4) Hypokalemia Code(s): E87.6 - HYPOKALEMIA Status: Acute (5) Alzheimer's dementia with behavioral disturbance Code(s): G30.8 - OTHER ALZHEIMER'S DISEASE; F02.81 - DEMENTIA IN OTH DISEASES CLASSD ELSWHR W BEHAVIORAL DISTURB Status: Chronic (6) Anemia, normocytic normochromic Code(s): D64.9 - ANEMIA, UNSPECIFIED Status: Chronic (7) Anxiety and depression Code(s): F41.8 - OTHER SPECIFIED ANXIETY DISORDERS Status: Chronic (8) Dyslipidemia Code(s): E78.5 - HYPERLIPIDEMIA, UNSPECIFIED Status: Chronic (9) Hypertension Code(s): I10 - ESSENTIAL (PRIMARY) HYPERTENSION Status: Chronic (10) Hypothyroidism Code(s): E03.9 - HYPOTHYROIDISM, UNSPECIFIED Status: Chronic (11) Parkinson disease Code(s): G20 - PARKINSON'S DISEASE Status: Chronic - Plan cont current plan of care, plan discussed w/ family, continue antibiotics, PT/OT , oncology social work * continue iv levaquin * medication reviewed as below * symptomatic treatment. * family interested in placement * outsole caser is working on SNU * stable and continue to improve Review of Systems - Review of Systems ENT: negative: Ear Pain, Ear Discharge, Nose Pain, Nose Discharge, Nose Congestion, Mouth Pain, Mouth Swelling, Throat Pain, Throat Swelling, Other Respiratory: negative: Cough, Dry, Shortness of Breath, Hemoptysis, SOB with Excertion, Pleuritic Pain, Sputum, Wheezing Cardiovascular: negative: Chest Pain, Palpitations, Orthopnea, Paroxysmal Noc. Dyspnea, Edema, Light Headedness, Other Gastrointestinal: negative: Nausea, Vomiting, Abdominal Pain, Diarrhea, Constipation, Melena, Hematochezia, Other Genitourinary: negative: Dysuria, Frequency, Incontinence, Hematuria, Retention , Other Musculoskeletal: negative: Neck Pain, Shoulder Pain, Arm Pain, Back Pain, Hand Pain, Leg Pain, Foot Pain, Other - Medications/Allergies Allergies/Adverse Reactions: Allergies Allergy/AdvReac Type Severity Reaction Status Date / Time No Known Allergies Allergy Unverified 02/15/17 17:14 Medications: Current Medications Acetaminophen (Tylenol) 650 mg PO Q4H PRN PRN Reason: Headache/Fever or Pain Last Admin: 02/16/17 15:46 Dose: 650 mg Al Hydroxide/Mg Hydroxide (Maalox) 30 ml PO Q6H PRN PRN Reason: Heartburn or Indigestion Albuterol/Ipratropium (Duoneb) 3 ml NEB [id number] PRN PRN Reason: SOB &/or Wheezing Artificial Tears (Tears Naturale) 0 drop EA EYE PRN PRN PRN Reason: Dry Eyes Atorvastatin Calcium (Lipitor) 40 mg PO HS [facility] Last Admin: 02/17/17 20:32 Dose: 40 mg Carbidopa/Levodopa (Sinemet 25-100) 2.5 tab PO 0700,1100,1500,1900 [facility] Last Admin: 02/18/17 11:59 Dose: 2.5 tab Cholecalciferol (Vitamin D3) 2,000 units PO DAILY [facility] Last Admin: 02/18/17 09:08 Dose: 2,000 units Donepezil HCl (Aricept) 10 mg PO HS [facility] Last Admin: 02/17/17 20:31 Dose: 10 mg Enoxaparin Sodium (Lovenox) 40 mg SC 0900 [facility] Last Admin: 02/18/17 09:08 Dose: 40 mg Finasteride (Proscar) 5 mg PO DAILY [facility] Last Admin: 02/18/17 09:08 Dose: 5 mg Guaifenesin (Robitussin Sf) 200 mg PO Q4H PRN PRN Reason: Cough Hydralazine HCl (Apresoline) 10 mg SLOW IVP Q4H PRN PRN Reason: Systolic BP > 180 Levofloxacin 500 mg/ Device 100 mls @ 100 mls/hr IVPB Q24HR [facility] Last Admin: 02/17/17 18:43 Dose: 100 mls Dextrose/Sodium Chloride (D5 0.9% Ns) 1,000 mls @ 0 mls/hr IV .Q0M [facility] PRN Reason: KVO Last Admin: 02/16/17 09:37 Dose: 1,000 mls Labetalol HCl (Normodyne) 20 mg SLOW IVP Q4H PRN PRN Reason: Systolic BP > 180 Loperamide HCl (Imodium) 2 mg PO PRN PRN PRN Reason: Diarrhea/Loose Stools Metoprolol Tartrate (Lopressor) 50 mg PO DAILY [facility] Last Admin: 02/18/17 09:08 Dose: 50 mg Mineral Oil/White Petrolatum (Eucerin Cream) 0 gm TOP BIDPRN PRN PRN Reason: Dry Skin Multivitamins (Theragran) 1 tab PO DAILY [facility] Last Admin: 02/18/17 09:08 Dose: 1 tab Ondansetron HCl (Zofran) 4 mg IVP Q6H PRN PRN Reason: Nausea/Vomiting Last Admin: 02/16/17 15:46 Dose: 4 mg Ondansetron HCl (Zofran Odt) 4 mg PO Q6H PRN PRN Reason: Nausea/Vomiting Oxybutynin Chloride (Ditropan Xl) 15 mg PO DAILY [facility] Last Admin: 02/18/17 10:13 Dose: 15 mg Ramipril (Altace) 10 mg PO HS [facility] Last Admin: 02/17/17 20:27 Dose: 10 mg Ropinirole HCl (Requip) 1 mg PO 1900 [facility] Selegiline HCl (Eldepryl) 5 mg PO 0700,1500 [facility] Last Admin: 02/18/17 06:17 Dose: 5 mg Senna (Senokot) 2 tab PO HSPRN PRN PRN Reason: Constipation Sodium Chloride (Flush - Normal Saline) 10 ml IVF Q12HR [facility] Last Admin: 02/18/17 09:09 Dose: 10 ml Sodium Chloride (Flush - Normal Saline) 10 ml IVF PRN PRN PRN Reason: Saline Flush Last Admin: 02/17/17 20:32 Dose: 10 ml Trospium (Trospium Chloride) 20 mg PO BID [facility] Last Admin: 02/18/17 09:08 Dose: 20 mg
[2017-02-18] MEDS: Atorvastatin Calcium 40 MG TAB PO SCH (20:10)
[2017-02-18] MEDS: Donepezil HCl 10 MG TAB PO SCH (20:10)
[2017-02-18] MEDS: rOPINIRole HCl 1 MG TAB PO SCH (20:10)
[2017-02-18] MEDS: Ramipril 5 MG CAP PO SCH (20:11)
[2017-02-19] MEDS: Carbidopa/Levodopa 25-100 mg Tablet PO SCH ×4 (06:24→19:17)
[2017-02-19] MEDS: TROSPIUM 20 MG TABLET PO SCH ×2 (09:06→20:46)
[2017-02-19] MEDS: Enoxaparin Sodium 40 MG/0.4 ML SYRINGE SC SCH (09:06)
[2017-02-19] MEDS: Metoprolol Tartrate 50 MG TAB PO SCH ×2 (09:06→20:48)
[2017-02-19] MEDS: Multivit, Therapeutic 1 TAB PO SCH (09:06)
[2017-02-19] MEDS: Finasteride 5 MG TAB PO SCH (09:06)
--- NOTE | 2017-02-19 13:31 | PDOC.PN ---
- Subjective Encounter Start Date: 02/19/17 Encounter Start Time: 10:30 Patient seen and examined. No new complaints. No overnight events - Objective Resuscitation Status: Resuscitation Status FULL:Full Resuscitation MAR Reviewed: Yes Vital Signs & Weight: Vital Signs (12 hours) Temp Pulse Resp BP Pulse Ox 02/19/17 12:19 98.1 F 75 18 126/77 96 02/19/17 08:00 98.1 F 84 20 158/90 H 92 L 02/19/17 07:43 98.1 F 84 20 95 02/19/17 04:00 98.0 F 86 16 173/97 H 94 L Weight Weight 186 lb 4 oz Most Recent Monitor Data Heart Rate from ECG 93 NIBP 166/75 NIBP BP-Mean 95 Respiration from ECG 15 SpO2 95 I&O: 02/18/17 02/19/17 02/20/17 06:59 06:59 06:59 Intake Total 1470 Output Total 1400 Balance 70 Result Diagrams: 02/16/17 05:20 02/16/17 05:20 Phys Exam - Physical Examination Constitutional: NAD HEENT: PERRLA, moist MMs, sclera anicteric Neck: no JVD, supple Respiratory: no wheezing, no rales, no rhonchi Cardiovascular: RRR, no significant murmur, no rub Gastrointestinal: soft, non-tender, no distention, positive bowel sounds Musculoskeletal: no edema, pulses present Neurological: non-focal, normal sensation Psychiatric: normal affect, A&O x 3 Skin: no rash, normal turgor Dx/Plan (1) Acute respiratory failure Code(s): J96.00 - ACUTE RESPIRATORY FAILURE, UNSP W HYPOXIA OR HYPERCAPNIA Status: Resolved Qualifiers: Respiratory failure complication: hypoxia Qualified Code(s): J96.01 - Acute respiratory failure with hypoxia (2) Community acquired bacterial pneumonia Code(s): J15.9 - UNSPECIFIED BACTERIAL PNEUMONIA Status: Acute (3) Encephalopathy acute Code(s): G93.40 - ENCEPHALOPATHY, UNSPECIFIED Status: Acute (4) Hypokalemia Code(s): E87.6 - HYPOKALEMIA Status: Acute (5) Alzheimer's dementia with behavioral disturbance Code(s): G30.8 - OTHER ALZHEIMER'S DISEASE; F02.81 - DEMENTIA IN OTH DISEASES CLASSD ELSWHR W BEHAVIORAL DISTURB Status: Chronic (6) Anemia, normocytic normochromic Code(s): D64.9 - ANEMIA, UNSPECIFIED Status: Chronic (7) Anxiety and depression Code(s): F41.8 - OTHER SPECIFIED ANXIETY DISORDERS Status: Chronic (8) Dyslipidemia Code(s): E78.5 - HYPERLIPIDEMIA, UNSPECIFIED Status: Chronic (9) Hypertension Code(s): I10 - ESSENTIAL (PRIMARY) HYPERTENSION Status: Chronic (10) Hypothyroidism Code(s): E03.9 - HYPOTHYROIDISM, UNSPECIFIED Status: Chronic (11) Parkinson disease Code(s): G20 - PARKINSON'S DISEASE Status: Chronic - Plan cont current plan of care, plan discussed w/ family, continue antibiotics, PT/OT , social media coordinator * change to po levaquin * await placement * medication reviewed as below * symptomatic treatment * medically stable with current treatment. Review of Systems - Review of Systems ENT: negative: Ear Pain, Ear Discharge, Nose Pain, Nose Discharge, Nose Congestion, Mouth Pain, Mouth Swelling, Throat Pain, Throat Swelling, Other Respiratory: negative: Cough, Dry, Shortness of Breath, Hemoptysis, SOB with Excertion, Pleuritic Pain, Sputum, Wheezing Cardiovascular: negative: Chest Pain, Palpitations, Orthopnea, Paroxysmal Noc. Dyspnea, Edema, Light Headedness, Other Gastrointestinal: negative: Nausea, Vomiting, Abdominal Pain, Diarrhea, Constipation, Melena, Hematochezia, Other Genitourinary: negative: Dysuria, Frequency, Incontinence, Hematuria, Retention , Other Musculoskeletal: negative: Neck Pain, Shoulder Pain, Arm Pain, Back Pain, Hand Pain, Leg Pain, Foot Pain, Other Skin: negative: Rash, Lesions, Jem, Bruising, Other - Medications/Allergies Allergies/Adverse Reactions: Allergies Allergy/AdvReac Type Severity Reaction Status Date / Time No Known Allergies Allergy Unverified 02/15/17 17:14 Medications: Current Medications Acetaminophen (Tylenol) 650 mg PO Q4H PRN PRN Reason: Headache/Fever or Pain Last Admin: 02/16/17 15:46 Dose: 650 mg Al Hydroxide/Mg Hydroxide (Maalox) 30 ml PO Q6H PRN PRN Reason: Heartburn or Indigestion Albuterol/Ipratropium (Duoneb) 3 ml NEB [id number] PRN PRN Reason: SOB &/or Wheezing Artificial Tears (Tears Naturale) 0 drop EA EYE PRN PRN PRN Reason: Dry Eyes Atorvastatin Calcium (Lipitor) 40 mg PO HS [facility] Last Admin: 02/18/17 20:10 Dose: 40 mg Carbidopa/Levodopa (Sinemet 25-100) 2.5 tab PO 0700,1100,1500,1900 [facility] Last Admin: 02/19/17 11:51 Dose: 2.5 tab Cholecalciferol (Vitamin D3) 2,000 units PO DAILY [facility] Last Admin: 02/19/17 09:05 Dose: 2,000 units Donepezil HCl (Aricept) 10 mg PO HS [facility] Last Admin: 02/18/17 20:10 Dose: 10 mg Enoxaparin Sodium (Lovenox) 40 mg SC 0900 [facility] Last Admin: 02/19/17 09:06 Dose: 40 mg Finasteride (Proscar) 5 mg PO DAILY [facility] Last Admin: 02/19/17 09:06 Dose: 5 mg Guaifenesin (Robitussin Sf) 200 mg PO Q4H PRN PRN Reason: Cough Hydralazine HCl (Apresoline) 10 mg SLOW IVP Q4H PRN PRN Reason: Systolic BP > 180 Labetalol HCl (Normodyne) 20 mg SLOW IVP Q4H PRN PRN Reason: Systolic BP > 180 Levofloxacin (Levaquin) 500 mg PO 0600 [facility] Loperamide HCl (Imodium) 2 mg PO PRN PRN PRN Reason: Diarrhea/Loose Stools Metoprolol Tartrate (Lopressor) 50 mg PO BID [facility] Last Admin: 02/19/17 09:06 Dose: 50 mg Mineral Oil/White Petrolatum (Eucerin Cream) 0 gm TOP BIDPRN PRN PRN Reason: Dry Skin Multivitamins (Theragran) 1 tab PO DAILY [facility] Last Admin: 02/19/17 09:06 Dose: 1 tab Ondansetron HCl (Zofran) 4 mg IVP Q6H PRN PRN Reason: Nausea/Vomiting Last Admin: 02/16/17 15:46 Dose: 4 mg Ondansetron HCl (Zofran Odt) 4 mg PO Q6H PRN PRN Reason: Nausea/Vomiting Oxybutynin Chloride (Ditropan Xl) 15 mg PO DAILY [facility] Last Admin: 02/19/17 09:23 Dose: 15 mg Ramipril (Altace) 10 mg PO HS [facility] Last Admin: 02/18/17 20:11 Dose: 10 mg Ropinirole HCl (Requip) 1 mg PO 1900 [facility] Last Admin: 02/18/17 20:10 Dose: 1 mg Selegiline HCl (Eldepryl) 5 mg PO 0700,1500 [facility] Last Admin: 02/19/17 06:23 Dose: 5 mg Senna (Senokot) 2 tab PO HSPRN PRN PRN Reason: Constipation Sodium Chloride (Flush - Normal Saline) 10 ml IVF Q12HR [facility] Last Admin: 02/19/17 09:06 Dose: 10 ml Sodium Chloride (Flush - Normal Saline) 10 ml IVF PRN PRN PRN Reason: Saline Flush Last Admin: 02/17/17 20:32 Dose: 10 ml Trospium (Trospium Chloride) 20 mg PO BID [facility] Last Admin: 02/19/17 09:06 Dose: 20 mg
--- NOTE | 2017-02-19 13:47 | PRG ---
DATE OF SERVICE: 02/19/2017 TIME OF SERVICE: 10:30 a.m. SUBJECTIVE: This morning, the patient is more alert. He does not have any complaints. He is akiko ating his diet well. There is no overnight event. He does not have any cough, fever, or chills. OBJECTIVE: VITAL SIGNS: Today, temperature 98.1, pulse 75, respiratory rate 18, saturation 96%, blood pressure 126/77, weight 186 pounds. GENERAL: The patient is currently alert and awake, no acute distress. HEAD: Normocephalic and atraumatic. EYES: Pupils round and reactive to light. ENT: Oropharynx within normal limits. Moist mucous membranes. NECK: Supple, range of motion is normal. LUNGS: Clear to auscultation without any rhonchi or rales. CARDIAC: S1, S2 regular without any murmur. ABDOMEN: Soft and benign. EXTREMITIES: No edema. NEUROLOGIC: Nonfocal examination. REVIEW OF SYSTEMS: The following complete review of systems was negative, unless otherwise mentione d in the HPI or below: Constitutional: Weight loss or gain, ability to conduct usual activities. Skin: Rash, itching. Eyes: Double vision, pain. ENT/Mouth: Nose bleeding, neck stiffness, pain, tenderness. Cardiovascular: Palpitations, dyspnea on exertion, orthopnea. Respiratory: Shortness of breath, wheezing, cough, hemoptysis, fever or night sweats. Gastrointestinal: Poor appetite, abdominal pain, heartburn, nausea, vomiting, constipation, or diar robin. Genitourinary: Urgency, frequency, dysuria, nocturia. Musculoskeletal: Pain, swelling. Neurologic/Psychiatric: Anxiety, depression. Allergy/Immunologic: Skin rash, bleeding tendency. All review of systems reviewed with him and negative. LABORATORY DATA: Significant laboratory data, old reports reviewed, but no new labs today, his cult ure is continued to be negative. ASSESSMENT AND PLAN: 1. Community-acquired bacterial pneumonia. Today, we will plan to change his IV Levaquin to p.o. L evaquin 500 mg daily. He is improving performed with this perspective. 2. Acute encephalopathy, resolved and now he is up to his baseline and normal status. 3. Hypokalemia. The patient has potassium supplementation given and normalize. 4. Alzheimer's dementia with behavioral disturbance, currently stable. 5. Anemia, normocytic normochromic, stable. 6. Anxiety and depression. 7. Dyslipidemia. 8. Hypertension, controlled. 9. Hypothyroidism. 10. Parkinson's disease. 11. Acute respiratory failure, resolved, status post extubation. IMPRESSION: At this point, the patient is waiting for his placement. We are waiting for insurance authorization for his placement. Otherwise, he is continuously getting his home medication for Park inson's disease and the above-mentioned medical problem. Once we have placement arranged that this patient is medically stable for discharge.
[2017-02-19] MEDS: rOPINIRole HCl 1 MG TAB PO SCH (19:17)
[2017-02-19] MEDS: Ramipril 5 MG CAP PO SCH (20:46)
[2017-02-19] MEDS: Donepezil HCl 10 MG TAB PO SCH (20:46)
[2017-02-19] MEDS: Atorvastatin Calcium 40 MG TAB PO SCH (20:46)
[2017-02-20] MEDS: Carbidopa/Levodopa 25-100 mg Tablet PO SCH ×4 (05:12→18:12)
[2017-02-20] MEDS: Finasteride 5 MG TAB PO SCH (08:51)
[2017-02-20] MEDS: Multivit, Therapeutic 1 TAB PO SCH (08:51)
[2017-02-20] MEDS: Enoxaparin Sodium 40 MG/0.4 ML SYRINGE SC SCH (08:51)
[2017-02-20] MEDS: Metoprolol Tartrate 50 MG TAB PO SCH ×2 (08:51→20:14)
[2017-02-20] MEDS: TROSPIUM 20 MG TABLET PO SCH ×2 (08:51→20:14)
--- NOTE | 2017-02-20 10:41 | PDOC.PN ---
- Subjective Encounter Start Date: 02/20/17 Encounter Start Time: 09:30 Patient seen and examined. No new complaints. No overnight events - Objective Resuscitation Status: Resuscitation Status FULL:Full Resuscitation MAR Reviewed: Yes Vital Signs & Weight: Vital Signs (12 hours) Temp Pulse Resp BP Pulse Ox 02/20/17 08:23 97.5 F L 75 18 152/92 H 92 L 02/20/17 08:00 97.5 F L 75 18 92 L 02/20/17 04:00 98.1 F 68 20 175/95 H 94 L 02/20/17 02:43 93 L Weight Weight 185 lb Most Recent Monitor Data Heart Rate from ECG 93 NIBP 166/75 NIBP BP-Mean 95 Respiration from ECG 15 SpO2 95 I&O: 02/19/17 02/20/17 02/21/17 06:59 06:59 06:59 Intake Total 1470 500 Output Total 1400 900 Balance 70 -400 Result Diagrams: 02/16/17 05:20 02/16/17 05:20 Phys Exam - Physical Examination Constitutional: NAD HEENT: PERRLA, moist MMs, sclera anicteric Neck: no JVD, supple Respiratory: no wheezing, no rales, no rhonchi Cardiovascular: RRR, no significant murmur, no rub Gastrointestinal: soft, non-tender, no distention, positive bowel sounds Musculoskeletal: no edema, pulses present Neurological: non-focal, normal sensation, moves all 4 limbs Lymphatic: no nodes Psychiatric: normal affect Skin: no rash, normal turgor Dx/Plan (1) Acute respiratory failure Code(s): J96.00 - ACUTE RESPIRATORY FAILURE, UNSP W HYPOXIA OR HYPERCAPNIA Status: Resolved Qualifiers: Respiratory failure complication: hypoxia Qualified Code(s): J96.01 - Acute respiratory failure with hypoxia (2) Community acquired bacterial pneumonia Code(s): J15.9 - UNSPECIFIED BACTERIAL PNEUMONIA Status: Acute (3) Encephalopathy acute Code(s): G93.40 - ENCEPHALOPATHY, UNSPECIFIED Status: Acute (4) Hypokalemia Code(s): E87.6 - HYPOKALEMIA Status: Acute (5) Alzheimer's dementia with behavioral disturbance Code(s): G30.8 - OTHER ALZHEIMER'S DISEASE; F02.81 - DEMENTIA IN OTH DISEASES CLASSD ELSWHR W BEHAVIORAL DISTURB Status: Chronic (6) Anemia, normocytic normochromic Code(s): D64.9 - ANEMIA, UNSPECIFIED Status: Chronic (7) Anxiety and depression Code(s): F41.8 - OTHER SPECIFIED ANXIETY DISORDERS Status: Chronic (8) Dyslipidemia Code(s): E78.5 - HYPERLIPIDEMIA, UNSPECIFIED Status: Chronic (9) Hypertension Code(s): I10 - ESSENTIAL (PRIMARY) HYPERTENSION Status: Chronic (10) Hypothyroidism Code(s): E03.9 - HYPOTHYROIDISM, UNSPECIFIED Status: Chronic (11) Parkinson disease Code(s): G20 - PARKINSON'S DISEASE Status: Chronic - Plan cont current plan of care, plan discussed w/ family, continue antibiotics, PT/OT , manager social * medication reviewed as below * symptomatic treatment * await placement * continue po levaquin. Review of Systems - Review of Systems ENT: negative: Ear Pain, Ear Discharge, Nose Pain, Nose Discharge, Nose Congestion, Mouth Pain, Mouth Swelling, Throat Pain, Throat Swelling, Other Respiratory: negative: Cough, Dry, Shortness of Breath, Hemoptysis, SOB with Excertion, Pleuritic Pain, Sputum, Wheezing Cardiovascular: negative: Chest Pain, Palpitations, Orthopnea, Paroxysmal Noc. Dyspnea, Edema, Light Headedness, Other Gastrointestinal: negative: Nausea, Vomiting, Abdominal Pain, Diarrhea, Constipation, Melena, Hematochezia, Other Genitourinary: negative: Dysuria, Frequency, Incontinence, Hematuria, Retention , Other Musculoskeletal: negative: Neck Pain, Shoulder Pain, Arm Pain, Back Pain, Hand Pain, Leg Pain, Foot Pain, Other Skin: negative: Rash, Lesions, Jem, Bruising, Other - Medications/Allergies Allergies/Adverse Reactions: Allergies Allergy/AdvReac Type Severity Reaction Status Date / Time No Known Allergies Allergy Unverified 02/15/17 17:14 Medications: Current Medications Acetaminophen (Tylenol) 650 mg PO Q4H PRN PRN Reason: Headache/Fever or Pain Last Admin: 02/16/17 15:46 Dose: 650 mg Al Hydroxide/Mg Hydroxide (Maalox) 30 ml PO Q6H PRN PRN Reason: Heartburn or Indigestion Albuterol/Ipratropium (Duoneb) 3 ml NEB [id number] PRN PRN Reason: SOB &/or Wheezing Artificial Tears (Tears Naturale) 0 drop EA EYE PRN PRN PRN Reason: Dry Eyes Atorvastatin Calcium (Lipitor) 40 mg PO HS [facility] Last Admin: 02/19/17 20:46 Dose: 40 mg Carbidopa/Levodopa (Sinemet 25-100) 2.5 tab PO 0700,1100,1500,1900 [facility] Last Admin: 02/20/17 05:12 Dose: 2.5 tab Cholecalciferol (Vitamin D3) 2,000 units PO DAILY [facility] Last Admin: 02/20/17 08:51 Dose: 2,000 units Donepezil HCl (Aricept) 10 mg PO HS [facility] Last Admin: 02/19/17 20:46 Dose: 10 mg Enoxaparin Sodium (Lovenox) 40 mg SC 0900 [facility] Last Admin: 02/20/17 08:51 Dose: 40 mg Finasteride (Proscar) 5 mg PO DAILY [facility] Last Admin: 02/20/17 08:51 Dose: 5 mg Guaifenesin (Robitussin Sf) 200 mg PO Q4H PRN PRN Reason: Cough Hydralazine HCl (Apresoline) 10 mg SLOW IVP Q4H PRN PRN Reason: Systolic BP > 180 Labetalol HCl (Normodyne) 20 mg SLOW IVP Q4H PRN PRN Reason: Systolic BP > 180 Levofloxacin (Levaquin) 500 mg PO 0600 [facility] Last Admin: 02/20/17 05:12 Dose: 500 mg Loperamide HCl (Imodium) 2 mg PO PRN PRN PRN Reason: Diarrhea/Loose Stools Metoprolol Tartrate (Lopressor) 50 mg PO BID [facility] Last Admin: 02/20/17 08:51 Dose: 50 mg Mineral Oil/White Petrolatum (Eucerin Cream) 0 gm TOP BIDPRN PRN PRN Reason: Dry Skin Multivitamins (Theragran) 1 tab PO DAILY [facility] Last Admin: 02/20/17 08:51 Dose: 1 tab Ondansetron HCl (Zofran) 4 mg IVP Q6H PRN PRN Reason: Nausea/Vomiting Last Admin: 02/16/17 15:46 Dose: 4 mg Ondansetron HCl (Zofran Odt) 4 mg PO Q6H PRN PRN Reason: Nausea/Vomiting Oxybutynin Chloride (Ditropan Xl) 15 mg PO DAILY [facility] Last Admin: 02/20/17 09:43 Dose: 15 mg Ramipril (Altace) 10 mg PO HS [facility] Last Admin: 02/19/17 20:46 Dose: 10 mg Ropinirole HCl (Requip) 1 mg PO 1900 [facility] Last Admin: 02/19/17 19:17 Dose: 1 mg Selegiline HCl (Eldepryl) 5 mg PO 0700,1500 [facility] Last Admin: 02/20/17 05:12 Dose: 5 mg Senna (Senokot) 2 tab PO HSPRN PRN PRN Reason: Constipation Sodium Chloride (Flush - Normal Saline) 10 ml IVF Q12HR [facility] Last Admin: 02/20/17 08:51 Dose: 10 ml Sodium Chloride (Flush - Normal Saline) 10 ml IVF PRN PRN PRN Reason: Saline Flush Last Admin: 02/17/17 20:32 Dose: 10 ml Trospium (Trospium Chloride) 20 mg PO BID [facility] Last Admin: 02/20/17 08:51 Dose: 20 mg
[2017-02-20] MEDS: rOPINIRole HCl 1 MG TAB PO SCH (18:12)
[2017-02-20] MEDS: Atorvastatin Calcium 40 MG TAB PO SCH (20:14)
[2017-02-20] MEDS: Donepezil HCl 10 MG TAB PO SCH (20:14)
[2017-02-20] MEDS: Ramipril 5 MG CAP PO SCH (20:19)
[2017-02-21] MEDS: Carbidopa/Levodopa 25-100 mg Tablet PO SCH ×2 (06:09→11:01)
[2017-02-21] MEDS: Multivit, Therapeutic 1 TAB PO SCH (08:42)
[2017-02-21] MEDS: TROSPIUM 20 MG TABLET PO SCH (08:42)
[2017-02-21] MEDS: Metoprolol Tartrate 50 MG TAB PO SCH (08:43)
[2017-02-21] MEDS: Finasteride 5 MG TAB PO SCH (08:43)
[2017-02-21] MEDS: Enoxaparin Sodium 40 MG/0.4 ML SYRINGE SC SCH (08:43)
--- NOTE | 2017-02-21 10:51 | PDOC.PN ---
- Subjective Encounter Start Date: 02/21/17 Encounter Start Time: 09:20 Patient seen and examined. No new complaints. No overnight events - Objective Resuscitation Status: Resuscitation Status FULL:Full Resuscitation MAR Reviewed: Yes Vital Signs & Weight: Vital Signs (12 hours) Temp Pulse Resp BP BP Pulse Ox 02/21/17 08:00 98.2 F 89 18 170/99 H 93 L 02/21/17 05:33 95 02/21/17 04:00 97.5 F L 78 16 172/99 H 93 L 02/21/17 00:00 97.5 F L 76 18 156/96 H 94 L Weight Weight 187 lb 12.8 oz Most Recent Monitor Data Heart Rate from ECG 93 NIBP 166/75 NIBP BP-Mean 95 Respiration from ECG 15 SpO2 95 I&O: 02/20/17 02/21/17 02/22/17 06:59 06:59 06:59 Intake Total 500 720 Output Total 900 100 Balance -400 620 Result Diagrams: 02/16/17 05:20 02/16/17 05:20 Phys Exam - Physical Examination Constitutional: NAD HEENT: PERRLA, moist MMs, sclera anicteric Neck: no JVD, supple Respiratory: no wheezing, no rales, no rhonchi Cardiovascular: RRR, no significant murmur, no rub Gastrointestinal: soft, non-tender, no distention, positive bowel sounds Musculoskeletal: no edema, pulses present Neurological: non-focal, normal sensation Psychiatric: normal affect, A&O x 3 Skin: no rash, normal turgor Dx/Plan (1) Acute respiratory failure Code(s): J96.00 - ACUTE RESPIRATORY FAILURE, UNSP W HYPOXIA OR HYPERCAPNIA Status: Resolved Qualifiers: Respiratory failure complication: hypoxia Qualified Code(s): J96.01 - Acute respiratory failure with hypoxia (2) Community acquired bacterial pneumonia Code(s): J15.9 - UNSPECIFIED BACTERIAL PNEUMONIA Status: Acute (3) Encephalopathy acute Code(s): G93.40 - ENCEPHALOPATHY, UNSPECIFIED Status: Acute (4) Hypokalemia Code(s): E87.6 - HYPOKALEMIA Status: Acute (5) Alzheimer's dementia with behavioral disturbance Code(s): G30.8 - OTHER ALZHEIMER'S DISEASE; F02.81 - DEMENTIA IN OTH DISEASES CLASSD ELSWHR W BEHAVIORAL DISTURB Status: Chronic (6) Anemia, normocytic normochromic Code(s): D64.9 - ANEMIA, UNSPECIFIED Status: Chronic (7) Anxiety and depression Code(s): F41.8 - OTHER SPECIFIED ANXIETY DISORDERS Status: Chronic (8) Dyslipidemia Code(s): E78.5 - HYPERLIPIDEMIA, UNSPECIFIED Status: Chronic (9) Hypertension Code(s): I10 - ESSENTIAL (PRIMARY) HYPERTENSION Status: Chronic (10) Hypothyroidism Code(s): E03.9 - HYPOTHYROIDISM, UNSPECIFIED Status: Chronic (11) Parkinson disease Code(s): G20 - PARKINSON'S DISEASE Status: Chronic - Plan cont current plan of care, plan discussed w/ family, PT/OT, social sciences research scientist * BP high, will add amlodipine * await placement * medication reviewed as below * symptomatic treatment. Review of Systems - Review of Systems ENT: negative: Ear Pain, Ear Discharge, Nose Pain, Nose Discharge, Nose Congestion, Mouth Pain, Mouth Swelling, Throat Pain, Throat Swelling, Other Respiratory: negative: Cough, Dry, Shortness of Breath, Hemoptysis, SOB with Excertion, Pleuritic Pain, Sputum, Wheezing Cardiovascular: negative: Chest Pain, Palpitations, Orthopnea, Paroxysmal Noc. Dyspnea, Edema, Light Headedness, Other Gastrointestinal: negative: Nausea, Vomiting, Abdominal Pain, Diarrhea, Constipation, Melena, Hematochezia, Other Genitourinary: negative: Dysuria, Frequency, Incontinence, Hematuria, Retention , Other Musculoskeletal: negative: Neck Pain, Shoulder Pain, Arm Pain, Back Pain, Hand Pain, Leg Pain, Foot Pain, Other - Medications/Allergies Allergies/Adverse Reactions: Allergies Allergy/AdvReac Type Severity Reaction Status Date / Time No Known Allergies Allergy Unverified 02/15/17 17:14 Medications: Current Medications Acetaminophen (Tylenol) 650 mg PO Q4H PRN PRN Reason: Headache/Fever or Pain Last Admin: 02/16/17 15:46 Dose: 650 mg Al Hydroxide/Mg Hydroxide (Maalox) 30 ml PO Q6H PRN PRN Reason: Heartburn or Indigestion Albuterol/Ipratropium (Duoneb) 3 ml NEB [id number] PRN PRN Reason: SOB &/or Wheezing Artificial Tears (Tears Naturale) 0 drop EA EYE PRN PRN PRN Reason: Dry Eyes Atorvastatin Calcium (Lipitor) 40 mg PO HS [facility] Last Admin: 02/20/17 20:14 Dose: 40 mg Carbidopa/Levodopa (Sinemet 25-100) 2.5 tab PO 0700,1100,1500,1900 [facility] Last Admin: 02/21/17 06:09 Dose: 2.5 tab Cholecalciferol (Vitamin D3) 2,000 units PO DAILY [facility] Last Admin: 02/21/17 08:41 Dose: 2,000 units Donepezil HCl (Aricept) 10 mg PO HS [facility] Last Admin: 02/20/17 20:14 Dose: 10 mg Enoxaparin Sodium (Lovenox) 40 mg SC 0900 [facility] Last Admin: 02/21/17 08:43 Dose: 40 mg Finasteride (Proscar) 5 mg PO DAILY [facility] Last Admin: 02/21/17 08:43 Dose: 5 mg Guaifenesin (Robitussin Sf) 200 mg PO Q4H PRN PRN Reason: Cough Hydralazine HCl (Apresoline) 10 mg SLOW IVP Q4H PRN PRN Reason: Systolic BP > 180 Labetalol HCl (Normodyne) 20 mg SLOW IVP Q4H PRN PRN Reason: Systolic BP > 180 Levofloxacin (Levaquin) 500 mg PO 0600 [facility] Last Admin: 02/21/17 05:44 Dose: 500 mg Loperamide HCl (Imodium) 2 mg PO PRN PRN PRN Reason: Diarrhea/Loose Stools Metoprolol Tartrate (Lopressor) 50 mg PO BID [facility] Last Admin: 02/21/17 08:43 Dose: 50 mg Mineral Oil/White Petrolatum (Eucerin Cream) 0 gm TOP BIDPRN PRN PRN Reason: Dry Skin Multivitamins (Theragran) 1 tab PO DAILY [facility] Last Admin: 02/21/17 08:42 Dose: 1 tab Ondansetron HCl (Zofran) 4 mg IVP Q6H PRN PRN Reason: Nausea/Vomiting Last Admin: 02/16/17 15:46 Dose: 4 mg Ondansetron HCl (Zofran Odt) 4 mg PO Q6H PRN PRN Reason: Nausea/Vomiting Oxybutynin Chloride (Ditropan Xl) 15 mg PO DAILY [facility] Last Admin: 02/20/17 09:43 Dose: 15 mg Ramipril (Altace) 10 mg PO HS [facility] Last Admin: 02/20/17 20:19 Dose: 10 mg Ropinirole HCl (Requip) 1 mg PO 1900 [facility] Last Admin: 02/20/17 18:12 Dose: 1 mg Selegiline HCl (Eldepryl) 5 mg PO 0700,1500 [facility] Last Admin: 02/21/17 06:10 Dose: 5 mg Senna (Senokot) 2 tab PO HSPRN PRN PRN Reason: Constipation Sodium Chloride (Flush - Normal Saline) 10 ml IVF Q12HR [facility] Last Admin: 02/21/17 08:45 Dose: 10 ml Sodium Chloride (Flush - Normal Saline) 10 ml IVF PRN PRN PRN Reason: Saline Flush Last Admin: 02/17/17 20:32 Dose: 10 ml Trospium (Trospium Chloride) 20 mg PO BID [facility] Last Admin: 02/21/17 08:42 Dose: 20 mg
--- NOTE | 2017-02-21 12:25 | DIS ---
DATE OF ADMISSION: 02/15/2017 DATE OF DISCHARGE: 02/21/2017 PRIMARY CARE PHYSICIAN: [facility] call admission. DISCHARGE DISPOSITION: [facility]. PRIMARY DISCHARGE DIAGNOSES: 1. Acute encephalopathy, resolved. 2. Acute respiratory failure, resolved. 3. Community-acquired pneumonia, treated in hospital. 4. Hypokalemia, corrected. 5. Physical deconditioning. SECONDARY DISCHARGE DIAGNOSES: Alzheimer's dementia with behavioral disturbance; anemia, normocytic , normochromic; Parkinson's disease; anxiety and depression; hypertension; dyslipidemia; hypothyroid ism. PRIMARY PROCEDURE/OPERATION: Endotracheal intubation on mechanical ventilatory support, central yelitza e placement. RADIOLOGICAL INVESTIGATION: Chest x-ray showed some right upper lobe infiltration. CT brain was ne gative for any acute intracranial process. CT cervical spine was negative for any fracture or dislo cation. SIGNIFICANT LABORATORY DATA: WBC 5.7, hemoglobin 11.6, and platelets 175. PTT 29.3. Sodium 141, p otassium 3.3, BUN 13, creatinine 0.82. Calcium 8.5. Ammonia 16, TSH 2.24, lipase 57. LFT normal. Urinalysis normal. Urine drug screen and serum drug screen negative. Blood culture negative. DISCHARGE MEDICATIONS: Lipitor 40 mg p.o. at bedtime, levodopa and carbidopa 2.5 tablet p.o. q.i.d. , vitamin D3 2000 units p.o. daily, Aricept 10 mg p.o. daily, Proscar 5 mg p.o. daily, metoprolol 50 mg p.o. daily, multivitamin 1 capsule p.o. daily, Ditropan-XL 15 mg p.o. daily, ramipril 10 mg p.o. at bedtime, Stelazine 5 mg p.o. twice daily, Detrol-LA 2 mg p.o. b.i.d., clonazepam 1 mg p.o. daily , ropinirole 1 mg p.o. daily, amlodipine 10 mg p.o. daily, and Levaquin 500 mg p.o. daily for 3 more days. CONTRAINDICATIONS: None. CODE STATUS: FULL CODE. INPATIENT PUBLIC SPEAKING PROFESSOR: Dr. Loera was following while in the hospital for respiratory failure. TEST RESULTS PENDING ON DISCHARGE: None. ALLERGIES: No known drug allergy. DISCHARGE PLAN: Post hospital, the patient will follow up with primary care physician. HOSPITAL COURSE: A 76-year-old male who had cough and patient was given antibiotic therapy. He did not have any improvement. He had insomnia and patient was given sleeping pill and next day the pat ient was more confused. The patient was walking to his pond and somebody saved him and he was broug ht to the emergency room. He was completely confused and disoriented. He required intubation in e emergency room, he required central line placement, he was admitted to ICU. He was treated with R ocephin and Levaquin for his pneumonia on the right upper lobe. Next day, patient was extubated and subsequently we moved him to medical floor. We did physical therapy. While in the hospital, the p guillermo has physical deconditioning and that is why family member requested half-way home marco addison. With help of community case manager, we arranged half-way home today. Paperwork for discharge done. Discharge medication reconciliation done today. Patient is seen and examined at bedside che cook. Please see my progress note from today for further details. Total time spent on discharge day 31 minutes.
[2017-02-21 13:43] VITALS: BP 115/74; TEMP 98.1
== END 2017-02-21 13:56 | DRG 208 ==
LOC: ERS 13:11 → EDBD 13:11 → CCU 15:21 → T4-B 02-16 20:06
PROVIDERS: ADMIT Internal Medicine; ATTEND Internal Medicine
PROC: 0BH17EZ Insertion of Endotracheal Airway into Trachea, Via Natural or Artificial Opening (ICD-10-PCS; principal; 2017-02-15)
PROC: 5A1945Z Respiratory Ventilation, 24-96 Consecutive Hours (ICD-10-PCS; 2017-02-15)
PROC: 02HV33Z Insertion of Infusion Device into Superior Vena Cava, Percutaneous Approach (ICD-10-PCS; 2017-02-15)
DX: J96.01 Acute respiratory failure with hypoxia (principal); G93.41 Metabolic encephalopathy; J15.9 Unspecified bacterial pneumonia; F02.81 Dementia in other diseases classified elsewhere, unspecified severity, with behavioral disturbance; G30.9 Alzheimer's disease, unspecified; G20 Parkinson's disease; D64.9 Anemia, unspecified; E87.6 Hypokalemia; I10 Essential (primary) hypertension; E78.5 Hyperlipidemia, unspecified; E03.9 Hypothyroidism, unspecified; Z85.46 Personal history of malignant neoplasm of prostate; Z95.5 Presence of coronary angioplasty implant and graft; N40.0 Benign prostatic hyperplasia without lower urinary tract symptoms; F41.8 Other specified anxiety disorders; Z78.1 Physical restraint status
CPT/HCPCS: 31500; 36415; 36416; 36556; 51702; 70450; 71010; 72125; 80048; 80053; 80306; 80307; 81003; 82140; 82550; 82805; 83690; 84443; 85007; 85025; 85027; 85730; 93005; 94002; 94003; 94760; 96365; 96366; 96368; 96376; 99292; A4216; C1751; G8978-GP-CM; G8979-GP-CJ; J0360; J0456; J0696; J1650; J1956; J2250; J2704; J3010; J3480; S0028